=== PATIENT | female | born 1990 | race Caucasian/White ===

== ENCOUNTER 2023-08-14 03:44 | Emergency (ER) | payer OTHER ==
[~2023-08-14] VITALS: Ht 162.6 cm; Wt 72.6 kg
[2023-08-14 03:45] VITALS: BP 127/75; TEMP 98.7
[2023-08-14 06:23] VITALS: O2SAT 97
== END 2023-08-14 06:24 ==
LOC: EDBD 03:48 → ER 03:48
DX: M25.531 Pain in right wrist (principal); I10 Essential (primary) hypertension; V89.0XXA Person injured in unspecified motor-vehicle accident, nontraffic, initial encounter; Y93.89 Activity, other specified; Y92.89 Other specified places as the place of occurrence of the external cause; Y99.8 Other external cause status
CPT/HCPCS: 73110